=== PATIENT | female | born 1975 | race Asian ===

== ENCOUNTER 2018-06-02 07:44 | Outpatient (CLI) | payer BC ==
--- NOTE | 2018-06-02 08:57 | ULT ---
ABDOMINAL ULTRASOUND: DATE: 06/02/2018. HISTORY: Mid abdominal pain, increased liver function tests. FINDINGS: The liver, spleen, visualized portions of the pancreas, visualized portions of the IVC, abdominal aor ta, gallbladder, and bilateral kidneys demonstrate a normal sonographic appearance. The right kidney measured 12 cm in length with the left kidney measuring 10.8 cm in length. The common duct measures 0.2 cm in diameter, which is within normal limits. IMPRESSION: Normal abdominal ultrasound. No gallbladder calculi are seen. POS: WENDIH
== END 2018-06-02 07:45 | disposition home or self-care (01) ==
LOC: SCSULT 07:44
PROVIDERS: ATTEND Family Medicine
DX: R10.10 Upper abdominal pain, unspecified (principal)
CPT/HCPCS: 76700

== ENCOUNTER 2018-06-06 14:39 | Outpatient (CLI) | payer BC ==
--- NOTE | 2018-06-06 18:31 | ULT ---
TRANSABDOMINAL AND TRANSVAGINAL PELVIC ULTRASOUND WITH DOPPLER: 06/06/2018 PROVIDED CLINICAL HISTORY: Pelvic pain. FINDINGS: The uterus measures approximately 6.9 x 5 x 4.3 cm and demonstrates an unremarkable sonographic appea zoey to the uterine myometrium. Endometrial thickness is about 5 mm. The right ovary measures about 3 x 3.5 x 1.8 cm and demonstrates an unremarkable sonographic appearan ce. The left ovary measures approximately 4 x 2.8 x 2.6 cm and demonstrates a 2.2 x 2.2 x 2.3 cm cystic s tructures with an eccentric focus of altered echogenicity at its peripheral margin. Color Doppler and spectral analysis of the ovarian waveforms demonstrates flow bilaterally. There is no significant free pelvic fluid. IMPRESSION: Complex cystic structure involving the left ovary may reflect a complex physiologic cyst. Twelve-wee k sonographic followup is recommended to evaluate for resolution. POS: OFF
== END 2018-06-06 14:40 | disposition home or self-care (01) ==
LOC: SCSULT 14:39
PROVIDERS: ATTEND Family Medicine
DX: R10.2 Pelvic and perineal pain (principal); N83.202 Unspecified ovarian cyst, left side
CPT/HCPCS: 76856

== ENCOUNTER 2018-06-15 13:20 | Outpatient (CLI) | payer BC ==
--- NOTE | 2018-06-15 14:14 | MMO ---
BILATERAL MAMMOGRAMS: History: Screening mammography. Comparison: None available. Baseline study. FINDINGS: Extremely dense fibroglandular tissue decreases the sensitivity of the exam. Benign appearing calcifi cations. No dominant mass or suspicious calcifications. Study was evaluated with the assistance of co priyankuter aided detection. IMPRESSION: BIRADS category 1 - negative. Suggest routine follow up. POS: HELIO
== END 2018-06-15 13:21 | disposition home or self-care (01) ==
LOC: SCSMAMMO 13:20
PROVIDERS: ATTEND Family Medicine
DX: Z12.31 Encounter for screening mammogram for malignant neoplasm of breast (principal)
CPT/HCPCS: 77067

== ENCOUNTER 2018-09-29 14:50 | Outpatient (CLI) | payer BC ==
--- NOTE | 2018-09-29 15:47 | ULT ---
PELVIC ULTRASOUND: History: Left ovarian cyst. Technique: Multiple longitudinal and transverse images of the pelvis was obtained using a multihertz curvilinear transabdominal as well as multihertz endovaginal transducer. FINDINGS: Real-time, color flow, and spectral waveform doppler analysis demonstrates the uterus to measure 8.2 x 5.2 x 5.1 cm. No evidence of uterine masses or lesions seen. The endometrium is of normal thickness measuring approximately 1.5 cm. Both ovaries are visualized with good blood flow. Right ovary measures 3.2 x 2.1 x 3.6 cm while the l eft measures 4.4 x 2.1 x 4.1 cm. Previously noted left ovarian cyst has resolved. IMPRESSION: 1. Normal pelvic ultrasound. 2. Resolved previously noted left ovarian cyst. POS: WENDI
== END 2018-09-29 14:51 | disposition home or self-care (01) ==
LOC: SCSULT 14:50
PROVIDERS: ATTEND Family Medicine
DX: N83.202 Unspecified ovarian cyst, left side (principal)
CPT/HCPCS: 36415; 76856; 86706; 86735; 86762; 86765; 86787